=== PATIENT | male | born 1945 | race Hispanic/Latino ===

== ENCOUNTER → 2023-07-16 | Emergency (ER) | payer OTHER ==
[~2023-07-16] MED LIST: ASPIRIN 81 MG CHEWABLE TABLET ONE; FOLIC ACID 5 MG/ML VIAL ONE; MECLIZINE HCL 12.5 MG TAB ONE; NA CHLORIDE 0.9% 1,000 ML ONE; NA CHLORIDE 0.9% 500 ML ONE; ONDANSETRON 4 MG/2 ML VIAL ONE
--- NOTE | 2023-07-16 12:01 | RAD REPORT ---
EXAM DESCRIPTION: Rhona Single View07/16/2023 11:45 am CLINICAL HISTORY: cough COMPARISON: none FINDINGS: The lungs appear clear of acute infiltrate. The heart is normal size IMPRESSION: No acute abnormalities displayed
--- NOTE | 2023-07-16 12:22 | RAD REPORT ---
EXAM DESCRIPTION: CT - Head Brain Wo Cont - 07/16/2023 11:38 am CLINICAL HISTORY: Dizziness COMPARISON: None TECHNIQUE: Computed axial tomography of the head was obtained. IV contrast was not requested. All CT scans are performed using dose optimization technique as appropriate and may include automated exposure control or mA/KV adjustment according to patient size. FINDINGS: An intracranial bleed is not seen The ventricles are normal in caliber No extra-axial fluid collection is noted. Distal left vertebral calcification Small low-density area right thalamus Mild low-density areas within periventricular, deep and subcortical white matter likely represent isc hemic changes secondary to small vessel disease. Fluid within the sinuses/ mastoids is not seen. IMPRESSION: Small low-density area right thalamus probably lacunar infarction. Age-indeterminate. If clinically indicated further evaluation with MRI may helpful
[2023-07-16 12:41] LABS: Absolute Lymphocytes (CBC) 1.9 K/uL (0.7-4.9); Hematocrit 37.4 % (39.6-49.0); Lymphocytes % 28.8 % (15.3-44.8); MCV 77.1 fL (80-100); MPV 8.7 fL (7.6-11.3); Platelets 218 thou/uL (152-406); RBC Red Blood Cell Count 4.85 M/uL (4.33-5.43)
[2023-07-16 12:44] LABS: Protime INR 1.41
[2023-07-16 13:00] LABS: Albumin 3.8 g/dL (3.4-5.0); Bilirubin Direct 0.2 mg/dL (0-0.2); Bilirubin Indirect, Calculated 0.3 mg/dL (0.2-0.8); Bilirubin Total 0.5 mg/dL (0.2-1.0); Potassium 3.8 mEq/L (3.5-5.1); Troponin High Sensitivity 24.5 pg/mL (<58.9)
[2023-07-16 13:39] LABS: Anisocytosis 3+; Blood Morphology Comment NOTED (NOT SEEN); Burr Cells 1+; Platelet Estimate ADEQ; Poikilocytosis 2+; Teardrop Cell 1+; White Blood Cell Scan OK (OK)
[2023-07-16 14:56] LABS: Specific Gravity 1.018 (1.005-1.030); Urine Bilirubin NEGATIVE (Negative); Urine Blood Negative (Negative); Urine Clarity Clear (Clear); Urine Color Colorless (Yellow); Urine Glucose 4+ (Over) (Negative); Urine Protein NEGATIVE (Negative); Urine Urobilinogen Normal (Normal)
--- NOTE | 2023-07-16 16:36 | RAD REPORT ---
EXAM DESCRIPTION: - CP - 07/16/2023 4:23 pm CLINICAL HISTORY: DIZZINESS Headache, drowsiness, dizziness COMPARISON: No comparisons TECHNIQUE: Real-time sonographic evaluation of both carotid systems was performed. Doppler interroga tion was performed with waveform tracing bilaterally. FINDINGS: Normal high resistance waveforms are noted in both external carotid arteries. The common c arotid arteries and internal carotid arteries show normal low resistance waveforms. Mild mixed plaque is seen in both carotid bulbs. Peak systolic and end diastolic velocity values and the ICA/CCA ratios are in the non-hemodynamically significant range. Antegrade flow seen in both vertebral arteries. IMPRESSION: Mild mixed plaque is seen in both carotid bulbs. No evidence of a hemodynamically significant stenosis.
--- NOTE | 2023-07-16 16:48 | RAD REPORT ---
EXAM DESCRIPTION: MRI - Brain Wo Cont - 07/16/2023 4:40 pm CLINICAL HISTORY: DIZZINESS Headache, drowsiness COMPARISON: Head Brain Wo Cont dated 07/16/2023 TECHNIQUE: Multi-sequence, multiplanar MR imaging of the brain was performed without contrast. FINDINGS: No intracranial hemorrhage, hydrocephalus or extra-axial fluid collections.Mild confluent T2/FLAIR hyperintensity in the periventricular and deep white matter is present compatible with chron ic microvascular ischemic changes. No edema or shift of midline structures. No findings to suspect br ain mass. DWI is negative for acute CVA. Midline structures are normally formed. Mastoid air cells and paranasal sinuses are clear. IMPRESSION: Negative for acute CVA or other acute intracranial process.
--- NOTE | 2023-07-16 16:52 | ER ---
Nurse's Notes [facility] Name: Kiley Tay Age: 77 yrs Sex: Male : 1945 Arrival Date: 07/16/2023 Time: 11:23 Bed 6 Private MD: Diagnosis: Dizziness and giddiness;Other peripheral vertigo;Nausea;Atrial premature depolarization Presentation: 07/16 11:55 Chief complaint: Patient states: woke up at 0630 and he was very dizzy and he had to iw hold on to the wall, was seen at [facility] and was sent here for evaluation. Coronavirus screen: At this time, the client does not indicate any symptoms associated with coronavirus-19. Ebola Screen: Patient negative for fever greater than or equal to 101.5 degrees Fahrenheit, and additional compatible Ebola Virus Disease symptoms Patient denies exposure to infectious person. Patient denies travel to an Ebola-affected area in the 21 days before illness onset. No symptoms or risks identified at this time. Initial Sepsis Screen: Does the patient meet any 2 criteria? No. Patient's initial sepsis screen is negative. Does the patient have a suspected source of infection? No. Patient's initial sepsis screen is negative. Risk Assessment: Do you want to hurt yourself or someone else? Patient reports no desire to harm self or others. Onset of symptoms was July 16, 2023. 11:55 Method Of Arrival: Ambulatory iw 11:55 Acuity: JANICE 3 iw Historical: - Allergies: 11:56 No Known Allergies; iw - Home Meds: 11:56 amlodipine 10 mg tablet daily [Active]; atorvastatin 40 mg oral tablet every evening iw [Active]; cholecalciferol (vitamin D3) 50 mcg (2,000 unit) oral Tablet,disintegrating daily [Active]; clopidogrel 75 mg oral tablet daily [Active]; empagliflozin 25 mg oral tablet daily [Active]; hydralazine 10 mg Oral tablet 2 times per day [Active]; insulin glargine 100 unit/mL (3 mL) Sub-Q Insulin Pen [Active]; lisinopril 40 mg Oral tablet daily [Active]; metformin 1,000 mg Oral tablet 2 times per day [Active]; - PMHx: 11:56 CVA; vertigo; iw Screenin:[address] [facility] ED Fall Risk Assessment (Adult) History of falling in the last 3 months, kc6 including since admission No falls in past 3 months (0 pts) Confusion or Disorientation No (0 pts) Intoxicated or Sedated No (0 pts) Impaired Gait No (0 pts) Mobility Assist Device Used No (0 pt) Altered Elimination No (0 pt) Score/Fall Risk Level 0 - 2 = Low Risk. Abuse screen: Denies threats or abuse. Denies injuries from another. Nutritional screening: No deficits noted. Tuberculosis screening: No symptoms or risk factors identified. Assessment: 12:48 General: Appears in no apparent distress. comfortable, well groomed, well developed, kc6 Behavior is calm, cooperative, appropriate for age. Pain: Denies pain. Neuro: Level of Consciousness is awake, alert, obeys commands, Oriented to person, place, time, situation, Appropriate for age Reports blurred vision dizziness. Cardiovascular: Denies chest pain, Heart tones S1 S2 present Capillary refill < 3 seconds Rhythm is sinus rhythm with PACs. Respiratory: Airway is patent Trachea midline Respiratory effort is even, unlabored, Respiratory pattern is regular, symmetrical, Denies shortness of breath. GI: No signs and/or symptoms were reported involving the gastrointestinal system. Abdomen is flat, non-distended. : No signs and/or symptoms were reported regarding the genitourinary system. EENT: No signs and/or symptoms were reported regarding the EENT system. Derm: No signs and/or symptoms reported regarding the dermatologic system. Skin is intact, is healthy with good turgor, Skin is pink, warm \T\ dry. Musculoskeletal: No signs and/or symptoms reported regarding the musculoskeletal system. Circulation, motion, and sensation intact. Capillary refill < 3 seconds, Range of motion: intact in all extremities. 13:48 Reassessment: Patient appears in no apparent distress at this time. No changes from kc6 previously documented assessment. Patient and/or family updated on plan of care and expected duration. Pain level reassessed. Patient is alert, oriented x 3, equal unlabored respirations, skin warm/dry/pink. 14:48 Reassessment: Patient appears in no apparent distress at this time. No changes from kc6 previously documented assessment. Patient and/or family updated on plan of care and expected duration. Pain level reassessed. Patient is alert, oriented x 3, equal unlabored respirations, skin warm/dry/pink. 15:40 Reassessment: Patient appears in no apparent distress at this time. No changes from kc6 previously documented assessment. Patient and/or family updated on plan of care and expected duration. Pain level reassessed. Patient is alert, oriented x 3, equal unlabored respirations, skin warm/dry/pink. 17:30 Reassessment: Patient appears in no apparent distress at this time. Patient and/or iw family updated on plan of care and expected duration. Pain level reassessed. Patient is alert, oriented x 3, equal unlabored respirations, skin warm/dry/pink. Patient states feeling better. Patient states symptoms have improved. Vital Signs: 11:56 BP 147 / 81; Pulse 69; Resp 16; Pulse Ox 100% on R/A; Weight 70.85 kg; Height 5 ft. 6 iw in. ; 12:49 BP 159 / 76; Pulse 70; Resp 16 S; Pulse Ox 100% on R/A; kc6 15:41 BP 158 / 64; Pulse 73; Resp 18 S; Pulse Ox 98% on R/A; kc6 17:34 BP 148 / 79; Pulse 74; Resp 16; Pulse Ox 98% on R/A; iw 11:56 Body Mass Index 25.21 (70.85 kg, 167.64 cm) iw Kate Coma Score: 15:57 Eye Response: spontaneous(4). Motor Response: obeys commands(6). Verbal Response: fabian oriented(5). Total: 15. NIH Stroke Scale Scores: 15:54 NIHSS Score: 0 fabian ED Course: 11:26 Patient arrived in ED. mr 11:27 Molina Hargrove MD is Attending Physician. fabian 11:40 CT Head Brain wo Cont In Process Unspecified. EDMS 11:45 XRAY Chest (1 view) In Process Unspecified. EDMS 11:56 Triage completed. iw 12:19 Haydee Bower, ERICH is Primary Nurse. kc6 12:37 Inserted saline lock: 20 gauge in right antecubital area, using aseptic technique. kc6 Blood collected. Patient maintains SpO2 saturation greater than 95% on room air. 12:47 Patient has correct armband on for positive identification. Bed in low position. Call kc6 light in reach. Side rails up X 1. Adult w/ patient. Client placed on continuous cardiac and pulse oximetry monitoring. NIBP monitoring applied. shelter monitor on. 12:48 Arm band placed on. kc6 16:24 US Carotid Artery Bilateral In Process Unspecified. EDMS 16:42 Brain Wo Cont In Process Unspecified. EDMS 16:50 Cayetano Marquez MD is Referral Physician. fabian 16:54 Santhosh Adkisn MD is Referral Physician. fabian 17:30 No provider procedures requiring assistance completed. IV discontinued, intact, iw bleeding controlled, No redness/swelling at site. Pressure dressing applied. Administered Medications: 12:49 Drug: NS 0.9% IV 500 ml IV at bolus once Route: IV; Rate: bolus; Site: right kc6 antecubital; 12:49 Drug: NS 0.9% IV 1000 ml IV at 125 ml/hr continuous Route: IV; Rate: 125 ml/hr; Site: kc6 right antecubital; 15:57 Drug: Meclizine PO 50 mg PO once Route: PO; kc6 15:57 Drug: Ondansetron IVP 4 mg IVP once; over 2 minutes Route: IVP; Site: right antecubital;kc6 15:58 Drug: NS 0.9% IV 500 ml IV at bolus once Route: IV; Rate: bolus; Site: right kc6 antecubital; 15:58 Drug: Aspirin PO Chewable Tablet 162 mg PO once Route: PO; kc6 15:58 Drug: foLIC Acid IVPB 1 mg IVPB once Route: IVPB; Site: right forearm; kc6 Medication: 17:34 VIS not applicable for this client. iw Outcome: 16:51 Discharge ordered by . fabian 17:34 Discharged to home ambulatory, with family, iw 17:34 Condition: good 17:34 Discharge instructions given to patient, family, Instructed on discharge instructions, follow up and referral plans. medication usage, Demonstrated understanding of instructions, follow-up care, medications, Prescriptions given X 3, 17:35 Patient left the ED. iw NIH Stroke Scale - NIH Stroke Score Date: 07/16/2023 Time: 15:54 Total Score = 0 10. Dysarthria (speech clarity - read or repeat words) - 0(Normal) 11. Extinction and Inattention (visual/tactile/auditory/spatial/personal) - 0(No abnormality) 1a. Level of Consciousness (LOC) - 0(Alert) 1b. Level of Consciousness (LOC) (Month \T\ Age) - 0(Both) 1c. LOC Commands (Open \T\ Closes Eyes/Data Center Manager) - 0(Both) 2. Best Gaze (Lateral Gaze Paresis) - 0(Normal) 3. Visual Field Loss - 0(No visual loss) 4. Facial Palsy - 0(Normal) 5a. Left Arm: Motor (10-second hold) - 0(No drift) 5b. Right Arm: Motor (10-second hold) - 0(No drift) 6a. Left Leg: Motor (5-second hold - always test supine) - 0(No drift) 6b. Right Leg: Motor (5-second hold - always test supine) - 0(No drift) 7. Limb Ataxia (finger/nose \T\ heel/johnston - test with eyes open) - 0(Absent) 8. Sensory Loss (pinprick arms/legs/face) - 0(Normal) 9. Best Language: Aphasia (description/naming/reading) - 0(No aphasia) Initials: fabian Signatures: Dispatcher [employer] EDMolina Esposito MD MD cha Rivera, Mary, Reg Reg mr Elvi Castillo, RN Haydee Nation RN RN kc6
--- NOTE | 2023-07-16 16:52 | EDPHYS ---
Physician Documentation [facility] Name: Kiley Tay Age: 77 yrs Sex: Male : 1945 Arrival Date: 07/16/2023 Time: 11:23 Bed 6 Private MD: ED Physician Molina Hargrove HPI: 07/16 15:54 This 77 yrs old Male presents to ER via Ambulatory with complaints of Leg fabian weakness, Nausea, Dizziness. 15:54 The patient presents to the emergency department with nausea, vomiting, that is fabian intermittent. Onset: The symptoms/episode began/occurred this morning. Historical: - Allergies: 11:56 No Known Allergies; iw - Home Meds: 11:56 amlodipine 10 mg tablet daily [Active]; atorvastatin 40 mg oral tablet every evening iw [Active]; cholecalciferol (vitamin D3) 50 mcg (2,000 unit) oral Tablet,disintegrating daily [Active]; clopidogrel 75 mg oral tablet daily [Active]; empagliflozin 25 mg oral tablet daily [Active]; hydralazine 10 mg Oral tablet 2 times per day [Active]; insulin glargine 100 unit/mL (3 mL) Sub-Q Insulin Pen [Active]; lisinopril 40 mg Oral tablet daily [Active]; metformin 1,000 mg Oral tablet 2 times per day [Active]; - PMHx: 11:56 CVA; vertigo; iw ROS: 15:54 Constitutional: Negative for fever, chills, and weight loss, Eyes: Negative for injury, fabian pain, redness, and discharge, ENT: Negative for injury, pain, and discharge, Neck: Negative for injury, pain, and swelling, Cardiovascular: Negative for chest pain, palpitations, and edema, Respiratory: Negative for shortness of breath, cough, wheezing, and pleuritic chest pain, Abdomen/GI: Negative for abdominal pain, nausea, vomiting, diarrhea, and constipation, Back: Negative for injury and pain, : Negative for injury, bleeding, discharge, and swelling, MS/Extremity: Negative for injury and deformity, Skin: Negative for injury, rash, and discoloration, Psych: Negative for depression, anxiety, suicide ideation, homicidal ideation, and hallucinations, Allergy/Immunology: Negative for hives, rash, and allergies, Endocrine: Negative for neck swelling, polydipsia, polyuria, polyphagia, and marked weight changes, 15:54 Neuro: Positive for dizziness, weakness, Exam: 15:54 Constitutional: This is a well developed, well nourished patient who is awake, alert, fabian and in no acute distress. Head/Face: Normocephalic, atraumatic. Eyes: Pupils equal round and reactive to light, extra-ocular motions intact. Lids and lashes normal. Conjunctiva and sclera are non-icteric and not injected. Cornea within normal limits. Periorbital areas with no swelling, redness, or edema. ENT: Nares patent. No nasal discharge, no septal abnormalities noted. Tympanic membranes are normal and external auditory canals are clear. Oropharynx with no redness, swelling, or masses, exudates, or evidence of obstruction, uvula midline. Mucous membranes moist. Neck: Trachea midline, no thyromegaly or masses palpated, and no cervical lymphadenopathy. Supple, full range of motion without nuchal rigidity, or vertebral point tenderness. No Meningismus. Chest/axilla: Normal chest wall appearance and motion. Nontender with no deformity. No lesions are appreciated. Cardiovascular: Regular rate and rhythm with a normal S1 and S2. No gallops, murmurs, or rubs. Normal PMI, no JVD. No pulse deficits. Respiratory: Lungs have equal breath sounds bilaterally, clear to auscultation and percussion. No rales, rhonchi or wheezes noted. No increased work of breathing, no retractions or nasal flaring. Abdomen/GI: Soft, non-tender, with normal bowel sounds. No distension or tympany. No guarding or rebound. No evidence of tenderness throughout. Back: No spinal tenderness. No costovertebral tenderness. Full range of motion. Male : Normal genitalia with no discharge or lesions. Skin: Warm, dry with normal turgor. Normal color with no rashes, no lesions, and no evidence of cellulitis. MS/ Extremity: Pulses equal, no cyanosis. Neurovascular intact. Full, normal range of motion. Neuro: Awake and alert, GCS 15, oriented to person, place, time, and situation. Cranial nerves II-XII grossly intact. Motor strength 5/5 in all extremities. Sensory grossly intact. Cerebellar exam normal. Normal gait. Psych: Awake, alert, with orientation to person, place and time. Behavior, mood, and affect are within normal limits. 15:54 ECG was reviewed by the Attending Physician. Vital Signs: 11:56 BP 147 / 81; Pulse 69; Resp 16; Pulse Ox 100% on R/A; Weight 70.85 kg; Height 5 ft. 6 iw in. ; 12:49 BP 159 / 76; Pulse 70; Resp 16 S; Pulse Ox 100% on R/A; kc6 15:41 BP 158 / 64; Pulse 73; Resp 18 S; Pulse Ox 98% on R/A; kc6 17:34 BP 148 / 79; Pulse 74; Resp 16; Pulse Ox 98% on R/A; iw 11:56 Body Mass Index 25.21 (70.85 kg, 167.64 cm) iw NIH Stroke Scale Scores: 15:54 NIHSS Score: 0 fabian Lampe Coma Score: 15:57 Eye Response: spontaneous(4). Motor Response: obeys commands(6). Verbal Response: fabian oriented(5). Total: 15. MDM: 11:27 Patient medically screened. fabian 15:56 Differential diagnosis: Nonspecific abd pain, viral gastroenteritis, gastroenteritis. fabian 15:57 Differential Diagnosis: cardiac arrhythmia, cerebrovascular accident, GI bleed, pseudo fabian seizure, seizure, cardiac arrhythmia, generalized weakness, GI bleed, head injury, hypovolemia, idiopathic dizziness, near-syncope, vertigo. Data reviewed: vital signs, nurses notes, lab test result(s), EKG, radiologic studies, CT scan, plain films. Consideration of Admission/Observation Escalation of care including admission/observation considered. I considered the following discharge prescriptions or medication management in the emergency department Medications were administered in the Emergency Department. See MAR. Independent interpretation of the following test(s) in the Emergency Department EKG: See my EKG interpretation above. Test considered but Not performed: Ultrasound NO 2 D ECHO. Historians other than the Patient: Spouse/Significant Other: WELL INFORMED. Care significantly affected by the following chronic conditions: VERTIGO, CVA. Counseling: I had a detailed discussion with the patient and/or guardian regarding the historical points, exam findings, and any diagnostic results supporting the discharge/admit diagnosis, lab results, radiology results. 07/16 11:29 Order name: Basic Metabolic Panel; Complete Time: 15:39 fabian 07/16 11:29 Order name: CBC with Diff; Complete Time: 15:39 fabian 02/15 11:29 Order name: LFT's; Complete Time: 15:39 07/16 11:29 Order name: Magnesium; Complete Time: 15:39 07/16 11:29 Order name: NT PRO-BNP; Complete Time: 15:39 07/16 11:29 Order name: PT-INR; Complete Time: 15:39 07/16 11:29 Order name: Troponin HS; Complete Time: 15:39 07/16 11:29 Order name: Lipase; Complete Time: 15:39 07/16 11:29 Order name: Urinalysis w/ reflexes; Complete Time: 15:39 [facility] 07/16 12:46 Order name: CBC Smear Scan; Complete Time: 15:39 EDAZ 07/16 11:29 Order name: XRAY Chest (1 view); Complete Time: 15:39 fabian 07/16 11:29 Order name: CT Head Brain wo Cont; Complete Time: 15:39 [facility] 07/16 15:40 Order name: US Carotid Artery Bilateral; Complete Time: 16:48 07/16 16:38 Order name: Brain Wo Cont EDAZ 07/16 11:29 Order name: EKG; Complete Time: 11:30 07/16 11:29 Order name: Cardiac monitoring; Complete Time: 12:36 [facility] 07/16 11:29 Order name: EKG - Nurse/Tech; Complete Time: 12:36 [facility] 07/16 11:29 Order name: IV Saline Lock; Complete Time: 12:36 [facility] 07/16 11:29 Order name: Labs collected and sent; Complete Time: 12:36 [facility] 07/16 11:29 Order name: O2 Per Protocol; Complete Time: 12:36 fabian 07/16 11:29 Order name: O2 Sat Monitoring; Complete Time: 12:36 [facility] EC:54 Rate is 71 beats/min. Rhythm is regular. QRS [place] is Normal. [place] interval is normal. QRS fabian interval is normal. QT interval is normal. T waves are Normal. No ST changes noted. Clinical impression: NSR w/ Non-specific ST/T Changes and No evidence of ischemia. Interpreted by me. Reviewed by me. Administered Medications: 12:49 Drug: NS 0.9% IV 500 ml IV at bolus once Route: IV; Rate: bolus; Site: right kc6 antecubital; 12:49 Drug: NS 0.9% IV 1000 ml IV at 125 ml/hr continuous Route: IV; Rate: 125 ml/hr; Site: kc6 right antecubital; 15:57 Drug: Meclizine PO 50 mg PO once Route: PO; kc6 15:57 Drug: Ondansetron IVP 4 mg IVP once; over 2 minutes Route: IVP; Site: right antecubital;kc6 15:58 Drug: NS 0.9% IV 500 ml IV at bolus once Route: IV; Rate: bolus; Site: right kc6 antecubital; 15:58 Drug: Aspirin PO Chewable Tablet 162 mg PO once Route: PO; kc6 15:58 Drug: foLIC Acid IVPB 1 mg IVPB once Route: IVPB; Site: right forearm; kc6 Disposition Summary: 07/16/23 16:51 Discharge Ordered Notes: Location: Home fabian Problem: new fabian Symptoms: have improved fabian Condition: Stable fabian Diagnosis - Dizziness and giddiness fabian - Other peripheral vertigo fabian - Nausea fabian - Atrial premature depolarization fabian Followup: fabian - With: Private Physician - When: 2 - 3 days - Reason: Recheck today's complaints, Continuance of care, Re-evaluation by your physician Followup: fabian - With: Cayetano Marquez MD - When: 2 - 3 days - Reason: Recheck today's complaints, Re-evaluation by your physician Followup: fabian - With: Santhosh Adkins MD - When: 2 - 3 days - Reason: Recheck today's complaints, Re-evaluation by your physician Discharge Instructions: - Discharge Summary Sheet fabian - Benign Positional Vertigo fabian - Dizziness fabian - Nausea and Vomiting, Adult fabian - Vertigo fabian - Nausea and Vomiting, Adult, Wisr-vs-[place] fabian - Vertigo, [id number] fabian - Aspirin and Your Heart fabian Forms: - Medication Reconciliation Form fabian - Thank You Letter fabian - Antibiotic Education fabian - Prescription Opioid Use fabian - Patient Portal Instructions [facility] - Leadership Thank You Letter [facility] Prescriptions: - ondansetron 4 mg Oral Tablet,disintegrating - take 1 tablet ORAL route every 6 to 8 hours for 5 days; 20 tablet; Refills: 0, fabian Product Selection Permitted - Meclizine 25 mg Oral tablet - take 1 tablet ORAL route every 6 hours; 30 tablet; Refills: 0, Product fabian Selection Permitted - Folic Acid 1 mg Oral Tablet - take 1 tablet ORAL route once daily; 30 tablet; Refills: 0, Product Selection fabian Permitted NIH Stroke Scale - NIH Stroke Score Date: 07/16/2023 Time: 15:54 Total Score = 0 10. Dysarthria (speech clarity - read or repeat words) - 0(Normal) 11. Extinction and Inattention (visual/tactile/auditory/spatial/personal) - 0(No abnormality) 1a. Level of Consciousness (LOC) - 0(Alert) 1b. Level of Consciousness (LOC) (Month \T\ Age) - 0(Both) 1c. LOC Commands (Open \T\ Closes Eyes/Semiconductor Processing Group Leader) - 0(Both) 2. Best Gaze (Lateral Gaze Paresis) - 0(Normal) 3. Visual Field Loss - 0(No visual loss) 4. Facial Palsy - 0(Normal) 5a. Left Arm: Motor (10-second hold) - 0(No drift) 5b. Right Arm: Motor (10-second hold) - 0(No drift) 6a. Left Leg: Motor (5-second hold - always test supine) - 0(No drift) 6b. Right Leg: Motor (5-second hold - always test supine) - 0(No drift) 7. Limb Ataxia (finger/nose \T\ heel/johnston - test with eyes open) - 0(Absent) 8. Sensory Loss (pinprick arms/legs/face) - 0(Normal) 9. Best Language: Aphasia (description/naming/reading) - 0(No aphasia) Initials: [facility] Signatures: Dispatcher [employer] Molina Tran MD MD cha Williams, Irene, RN RN iw Campbell, Kaitlyn, RN RN kc6 Corrections: (The following items were deleted from the chart) 16:38 15:42 MR STROKE PROTOCOL+MRI.RAD.BRZ ordered. EDMS BROOKE
[2023-07-16 17:55] VITALS: BP 158/64; O2SAT 98
--- NOTE | 2023-07-20 11:07 | EKG ---
Test Date: 2023-07-16 Test Time: 12:24:52 Religion Department Chair: ADEOLA MEASUREMENT RESULTS: Intervals: Rate: 71 TX: 172 QRSD: 128 QT: 398 QTc: 432 [place]: P: 52 TX: 172 QRS: -30 T: 52 INTERPRETIVE STATEMENTS: Sinus rhythm with premature atrial complexes Left axis deviation Left ventricular hypertrophy with QRS widening Cannot rule out Septal infarct, age undetermined Abnormal ECG No previous ECG available for comparison Electronically Signed On 07-20-23 11:00:50 APICULTURE TEACHER by Manny Zaragoza
== END ==
LOC: ER 11:23
DX: H81.399 Other peripheral vertigo, unspecified ear (principal); I49.1 Atrial premature depolarization; R11.0 Nausea; Z86.73 Personal history of transient ischemic attack (TIA), and cerebral infarction without residual deficits
CPT/HCPCS: 85025; 80048; 36415; 83735; 85610; 80076; 81003; 84484; 83690; 83880; 70450; 71045; 93880; 70551; 99285; J8597; J2405; J7040 ×2; J7030; 93005